=== PATIENT | female | born 1985 | race Caucasian/White ===

== ENCOUNTER 2025-05-09 05:38 | Emergency (ER) | payer MEDICAID ==
[~2025-05-09] VITALS: Ht 167.6 cm; Wt 53.6 kg
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
[2025-05-09 07:14] VITALS: BP 117/80; PULSE 60; RESP 13; TEMP 98.1; O2SAT 98
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
[2025-05-09] MEDS: ketorolac trometh 15mg/ml vial 15 MG/ML ML IM ONE (07:46)
--- NOTE | 2025-05-09 11:53 | RADIOLOGY REPORT ---
EXAM: DI SHOULDER, COMPLETE (MIN 2 VWS) CLINICAL INDICATION: fall TECHNIQUE: DI SHOULDER, COMPLETE (MIN 2 VWS) Comparison: None FINDINGS/IMPRESSION: There is no evidence of acute fracture or dislocation. The visualized joint space is well maintained. The alignment is anatomical. There is no radiopaque foreign body.
== END 2025-05-09 07:52 | disposition home or self-care (01) ==
LOC: ER 05:38
DX: S06.0X0A Concussion without loss of consciousness, initial encounter (principal); S40.212A Abrasion of left shoulder, initial encounter; F17.200 Nicotine dependence, unspecified, uncomplicated; W18.39XA Other fall on same level, initial encounter; Y93.89 Activity, other specified; Y92.89 Other specified places as the place of occurrence of the external cause; Y99.8 Other external cause status
CPT/HCPCS: 70450; 70486; 72125; 73030; 96372; 99285; J1885

== ENCOUNTER 2025-06-13 14:14 | Emergency (ER) | payer BC, MEDICAID ==
[~2025-06-13] VITALS: Ht 162.6 cm; Wt 61.4 kg
[2025-06-13 14:16] VITALS: BP 152/108; PULSE 84; TEMP 98.4; O2SAT 98
--- NOTE | 2025-06-13 14:16 | Physician Documentation ---
History of Present Illness ~ Stated Complaint: ARMPIT PAIN Time Seen by MD: 14:16 Primary Medical Doctor: Elton MILLIGAN 39-year-old female who presents to the emergency department reporting that she has a left armpit pain for the last several days. He has chills or fever, nausea vomiting, chest pain or shortness of breath. She reports that if she rubs in the left armpit, the pain is worse while she is doing so but then becomes better. It seems to radiate into the left shoulder and upper back. Medication Reconciliation Allergies: Coded Allergies: No Known Allergies (Unverified , 06/13/25) Past Medical History Past Medical History: UTI Past Surgical History: no surgical history Alcohol Use: None Drug Use: none Lives with: Family Lives In: Home Review of Systems ROS As stated above in the HPI, otherwise all systems are reviewed and negative. Physical Exam Physical Exam General: Alert, no apparent distress. Neck: Full range of motion. Respiratory: Lungs clear, no respiratory distress. Chest: No accessory muscle use. Cardiovascular: Regular rate and rhythm, no murmurs. Gastrointestinal: Soft, nontender, nondistended. Bowels sounds present. Extremities: Normal range of motion, no deformity. Neurologic: Oriented x4. Psychiatric: Normal mood and affect. Skin: Normal color, warm and dry. No edema, no ecchymosis. No abscess in left axilla. Progress Results/Orders Results/Orders Completed Orders - JOSE L DOVE [employer] Diazepam Tablet (Valium Tablet) (06/13/25 15:55) Ketorolac Trometh 30mg/Ml Vial (Toradol (06/13/25 15:55) Medications Received in ER Medications (Trade) Dose Ordered Sig/Yanni Route PRN Reason Start Time Stop Time Status Last Admin Dose Admin (Valium tablet) 5 mg ONCE ONCE PO 06/13/25 15:55 06/13/25 15:56 DC 06/13/25 16:01 5 MG (Toradol inj. 30mg/ml) 30 mg ONCE ONCE IM 06/13/25 15:55 06/13/25 15:56 DC 06/13/25 16:01 30 MG Vital Signs 06/13/25 06/13/25 14:16 16:01 Temp 98.4 Pulse 84 Resp 16 16 B/P (MAP) 152/108 Pulse Ox 98 O2 Flow Rate 0 Medical Decision Making Differential Dx:Considerations: Include: Abscess, Anthrax (cutaneous), Atopic dermatitis, Candidiasis, Contact dermatitis, Erythema multiforme, Intertrigo, Molluscum contagiosum, Osteomyelitis, Pediculosis, Pityriasis rosea, Psoriaisis, Rosacea, Scarlet fever, Tinea, Urticaria, Varicella, Viral exanthema Additional Comment Recurrent dental infections, will treat with amoxicillin. Discussed need to return if signs of abscess under left arm occur. Suspect muscle strain/sprain/spasm. Use the prescribed muscle relaxants. Departure Time of Disposition: 16:02 Disposition: 01 HOME / SELF CARE / HOMELESS Impression: Primary Impression: Musculoskeletal strain Additional Impressions: Spasm Dental infection Discharge Instructions: Dental Caries, Adult, Dental Mouthguards for Sports, Muscle Strain, [id number] Additional Instructions: You have strain/sprain of the left shoulder radiating into the left underarm. Take the prescribed medications. You have hx of recurrent dental infections. Take the prescribed antibiotics and see a dentist soon. If you develop an enlarging painful lump under the right arm, return for drainage. This is not present on exam today. See your primary care provider and request a referral to PT. Return if worse. Referrals: NO PRIMARY CARE PROVIDER (PCP) Prescriptions Naproxen (Naproxen) 500 Mg Tablet 1 TAB PO Q12H, #20 TAB Prov: JOSE L DOVE NP 06/13/25 Tizanidine Hcl (Zanaflex) 4 Mg Capsule 1 CAP PO Q8H for 10 Days, #30 CAP 0 Refills Prov: JOSE L DOVE NP 06/13/25 Amoxicillin Trihydrate (Amoxicillin) 500 Mg Capsule 1 CAP PO Q8H for 7 Days, #21 CAP Prov: JOSE L DOVE NP 06/13/25 Education Educated: Patient Educated regarding: diagnosis, treatment, prognosis, need for follow up Signature Scribe Signature: x Attestation: The note accurately reflects work and decisions made by me.Jose L Rea NP 06/13/25 14:26 JOSE L DOVE NP Jun 13, 2025 14:16
[2025-06-13 16:01] VITALS: RESP 16
[2025-06-13] MEDS: ketorolac trometh 30MG/ML vial 30 MG/ML VIAL IM ONE (16:01)
[2025-06-13] MEDS ORDERED: AMOX-101 PO (16:08)
[2025-06-13] MEDS ORDERED: TIZA4CAP PO (16:11)
[2025-06-13] MEDS ORDERED: NAPR-56 PO (16:12)
== END 2025-06-13 16:24 | disposition home or self-care (01) ==
LOC: ER 14:15
DX: S66.812A Strain of other specified muscles, fascia and tendons at wrist and hand level, left hand, initial encounter (principal); R25.2 Cramp and spasm; K04.7 Periapical abscess without sinus; X58.XXXA Exposure to other specified factors, initial encounter; Y93.89 Activity, other specified; Y92.89 Other specified places as the place of occurrence of the external cause; Y99.8 Other external cause status
CPT/HCPCS: 96372; 99283; J1885